=== PATIENT | male | born 1940 | race Hispanic/Latino ===

== ENCOUNTER 2024-10-20 15:07 | Inpatient (IN) | payer MEDICARE ==
[~2024-10-20] VITALS: Ht 175.3 cm; Wt 97.5 kg
[2024-10-20 15:20] VITALS: TEMP 98.3
[2024-10-20 15:49] LABS: BASOPHILS # (AUTO) 0.1 (0.0-0.1); BASOPHILS % 0.7 % (0.0-1.0); EOSINOPHILS # (AUTO) 0.3 (0.0-0.4); EOSINOPHILS % 3.4 % (0.0-6.0); HEMATOCRIT 32.6 % (38.2-49.6); HEMOGLOBIN 10.3 g/dL (14.0-18.0); LYMPHOCYTES # (AUTO) 1.7 (1.0-3.2); LYMPHOCYTES % 21.7 % (18.0-39.1); MEAN CORPUSCULAR HEMOGLOBIN 26.1 pg (28-32); MEAN CORPUSCULAR HGB CONC 31.6 g/dL (31-35); MEAN CORPUSCULAR VOLUME 82.7 fL (81-99); MONOCYTES # (AUTO) 0.5 (0.2-0.8); MONOCYTES % 6.2 % (4.4-11.3); NEUTROPHILS # (AUTO) 5.2 (2.1-6.9); NEUTROPHILS % 67.6 % (38.7-80.0); PLATELET COUNT 293 x10e3/uL (140-360); RED BLOOD COUNT 3.94 x10e6/uL (4.3-5.7); RED CELL DISTRIBUTION WIDTH 15.7 % (11.7-14.4); WHITE BLOOD COUNT 7.69 x10e3/uL (4.8-10.8)
[2024-10-20 16:07] LABS: BILIRUBIN,URINE NEGATIVE (NEGATIVE); CLARITY,URINE SL CLOUDY (CLEAR); COLOR,URINE YELLOW (YELLOW); GLUCOSE, URINE NEGATIVE (NEGATIVE); KETONES,URINE NEGATIVE (NEGATIVE); LEUKOCYTE ESTERASE ,URINE NEGATIVE (NEGATIVE); NITRITE,URINE NEGATIVE (NEGATIVE); PH,URINE 5.5 (5 - 7); PROTEIN,URINE DIPSTICK 1+ (NEGATIVE); URINE UROBILINOGEN 0.2 mg/dL (0.2 - 1)
[2024-10-20 16:17] LABS: AMORPHOUS SEDIMENT,URINE MODERATE; BACTERIA,URINE FEW /HPF; WBC,URINE (MAN) 0-5 /HPF (0-5)
[2024-10-20 16:30] LABS: ALBUMIN 3.3 g/dL (3.5-5.0); ALBUMIN/GLOBULIN RATIO 0.6 (0.8-2.0); ANION GAP 19.7 mmol/L (8-16); BILIRUBIN,TOTAL 0.5 mg/dL (0.2-1.2); CREATININE, SERUM 3.17 mg/dL (0.72-1.25); INR 2.25; MAGNESIUM 2.3 MG/DL (1.3-2.1); POTASSIUM 3.7 mmol/L (3.5-5.1); PROTHROMBIN TIME 26.6 seconds (11.9-14.5); TOTAL PROTEIN 8.8 g/dL (6.5-8.1)
[2024-10-20 16:31] LABS: PARTIAL THROMBOPLASTIN TIME 57.1 seconds (23.8-35.5)
[2024-10-20] MEDS ORDERED: DEXTROSE 50% SYRINGE 50 ML IV ONE (16:35)
[2024-10-20 16:36] LABS: TROPONIN I 0.035 ng/mL (0-0.300)
[2024-10-20] MEDS: DEXTROSE 50% SYRINGE 50 ML IV STA (16:48)
[2024-10-20] MEDS: DEXTROSE 5% 1,000 ML IV ONE (16:59)
[2024-10-20 17:00] VITALS: PULSE 57; RESP 16
[2024-10-20] MEDS ORDERED: FUROSEMIDE40 MG PO (17:03)
[2024-10-20] MEDS ORDERED: CARVEDILOL25 MG PO (17:03)
[2024-10-20] MEDS ORDERED: LANTUS 3ML100 UNITS/ SQ (17:03)
[2024-10-20] MEDS ORDERED: AMLODIPINE BESY10 MG PO (17:03)
[2024-10-20] MEDS ORDERED: WARFARIN SODIUM4 MG PO (17:03)
[2024-10-20] MEDS ORDERED: ATORVASTATIN CA10 MG PO (17:03)
[2024-10-20] MEDS ORDERED: SIMETHICONE 80 MG CHEW PO PRN (17:15)
[2024-10-20] MEDS ORDERED: BENZONATATE 100 MG CAP PO PRN (17:15)
[2024-10-20] MEDS ORDERED: LIDOCAINE 4% PATCH TP PRN (17:15)
[2024-10-20] MEDS ORDERED: ALBUTEROL/IPRATROPIUM 3 ML NEB NEB PRN (17:15)
[2024-10-20] MEDS ORDERED: DIPHENHYDRAMINE HCL 25 MG CAP PO PRN (17:15)
[2024-10-20] MEDS ORDERED: ONDANSETRON HCL INJ 2MG/ML 2ML 2 MG/ML VIAL IV PRN (17:15)
[2024-10-20] MEDS ORDERED: HYDRALAZINE HCL 20 MG/ML VIAL IV PRN (17:15)
[2024-10-20] MEDS ORDERED: DEXTROSE 50% SYRINGE 50 ML IV PRN (17:15)
[2024-10-20] MEDS ORDERED: ACETAMINOPHEN 325 MG TAB PO PRN (17:15)
[2024-10-20] MEDS: DEXTROSE 5%/0.9% SOD CHL 1,000 ML IV SCH (17:48)
[2024-10-20 20:34] VITALS: BP 125/59; PULSE 56; RESP 20; TEMP 97.7; O2SAT 95
[2024-10-20] MEDS ORDERED: MELATONIN 5 MG TABLET PO PRN (21:00)
[2024-10-20] MEDS: TAMSULOSIN HCL 0.4 MG CAP PO SCH (21:41)
[2024-10-20 23:06] VITALS: BP 125/59; PULSE 56; RESP 20; TEMP 97.7; O2SAT 95
[2024-10-20 23:44] VITALS: BP 131/61; PULSE 57; RESP 19; TEMP 97.7; O2SAT 98
[2024-10-21] VITALS (7 sets, daily range): BP systolic 121–141; BP diastolic 57–78; PULSE 56–68; RESP 16–19; TEMP 97.5–97.9; O2SAT 98–100
[2024-10-21 05:58] LABS: BASOPHILS % 0.7 % (0.0-1.0); EOSINOPHILS # (AUTO) 0.3 (0.0-0.4); EOSINOPHILS % 4.6 % (0.0-6.0); HEMATOCRIT 27.4 % (38.2-49.6); HEMOGLOBIN 8.4 g/dL (14.0-18.0); LYMPHOCYTES # (AUTO) 1.4 (1.0-3.2); MEAN CORPUSCULAR HEMOGLOBIN 25.6 pg (28-32); MEAN CORPUSCULAR HGB CONC 30.7 g/dL (31-35); MEAN CORPUSCULAR VOLUME 83.5 fL (81-99); MONOCYTES # (AUTO) 0.4 (0.2-0.8); MONOCYTES % 8.2 % (4.4-11.3); NEUTROPHILS # (AUTO) 3.3 (2.1-6.9); NEUTROPHILS % 60.9 % (38.7-80.0); PLATELET COUNT 249 x10e3/uL (140-360); RED BLOOD COUNT 3.28 x10e6/uL (4.3-5.7); RED CELL DISTRIBUTION WIDTH 15.4 % (11.7-14.4); WHITE BLOOD COUNT 5.39 x10e3/uL (4.8-10.8)
[2024-10-21 06:29] LABS: ANION GAP 15.2 mmol/L (8-16); CALCIUM 7.2 mg/dL (8.4-10.2); CREATININE, SERUM 2.68 mg/dL (0.72-1.25); PHOSPHORUS 3.2 MG/DL (2.3-4.7)
[2024-10-21 06:32] LABS: POTASSIUM 3.2 mmol/L (3.5-5.1)
[2024-10-21 06:38] LABS: TROPONIN I 0.032 ng/mL (0-0.300)
[2024-10-21 06:51] LABS: THYROID STIMULATING HORMONE 1.896 uIU/mL (0.350-4.940)
[2024-10-21] MEDS ORDERED: CARVEDILOL 12.5 MG TAB PO SCH (09:00)
[2024-10-21] MEDS: PANTOPRAZOLE SOD 40 MG TABEC PO SCH (09:14)
[2024-10-21] MEDS: CARVEDILOL 3.125 MG TAB PO SCH (09:14)
[2024-10-21] MEDS: POTASSIUM CHLORIDE 20 MEQ TAB CR PO PRN (09:26)
[2024-10-21] MEDS ORDERED: DEXTROSE 50% SYRINGE 50 ML IV PRN (15:45)
[2024-10-21] MEDS: WARFARIN SOD 2 MG TAB PO SCH (16:49)
[2024-10-21] MEDS: FUROSEMIDE INJ 10 MG/ML 4 ML VIAL IV SCH (16:49)
[2024-10-21] MEDS: POTASSIUM CHLORIDE 20 MEQ TAB CR PO SCH (16:50)
[2024-10-21] MEDS: INSULIN LISPRO 100 UNIT/1 ML 3ML VIAL SQ SCH (16:57)
[2024-10-21 17:24] LABS: TROPONIN I 0.035 ng/mL (0-0.300)
[2024-10-22] VITALS (7 sets, daily range): BP systolic 129–156; BP diastolic 54–74; PULSE 56–64; RESP 18–20; TEMP 97.3–98.9; O2SAT 97–100
[2024-10-22 07:19] LABS: BASOPHILS # (AUTO) 0.1 (0.0-0.1); BASOPHILS % 0.8 % (0.0-1.0); EOSINOPHILS # (AUTO) 0.2 (0.0-0.4); EOSINOPHILS % 3.7 % (0.0-6.0); HEMATOCRIT 29.4 % (38.2-49.6); HEMOGLOBIN 9.3 g/dL (14.0-18.0); LYMPHOCYTES # (AUTO) 1.6 (1.0-3.2); LYMPHOCYTES % 26.6 % (18.0-39.1); MEAN CORPUSCULAR HEMOGLOBIN 26.1 pg (28-32); MEAN CORPUSCULAR HGB CONC 31.6 g/dL (31-35); MEAN CORPUSCULAR VOLUME 82.6 fL (81-99); MONOCYTES # (AUTO) 0.5 (0.2-0.8); NEUTROPHILS # (AUTO) 3.6 (2.1-6.9); NEUTROPHILS % 60.2 % (38.7-80.0); PLATELET COUNT 248 x10e3/uL (140-360); RED BLOOD COUNT 3.56 x10e6/uL (4.3-5.7); RED CELL DISTRIBUTION WIDTH 15.4 % (11.7-14.4); WHITE BLOOD COUNT 6.02 x10e3/uL (4.8-10.8)
[2024-10-22 07:49] LABS: INR 1.93; PROTHROMBIN TIME 23.6 seconds (11.9-14.5)
[2024-10-22 07:54] LABS: ANION GAP 16.4 mmol/L (8-16); CALCIUM 7.7 mg/dL (8.4-10.2); CREATININE, SERUM 2.59 mg/dL (0.72-1.25); POTASSIUM 4.4 mmol/L (3.5-5.1)
[2024-10-22] MEDS: FUROSEMIDE INJ 100 MG in SODIUM CHLORIDE 0.9% 90 ML IV SCH (17:23)
[2024-10-23] VITALS (12 sets, daily range): BP systolic 110–164; BP diastolic 61–72; PULSE 54–101; RESP 18–20; TEMP 97.3–98.6; O2SAT 96–100
[2024-10-23 05:54] LABS: BASOPHILS % 0.6 % (0.0-1.0); EOSINOPHILS # (AUTO) 0.3 (0.0-0.4); HEMATOCRIT 30.9 % (38.2-49.6); HEMOGLOBIN 9.9 g/dL (14.0-18.0); LYMPHOCYTES % 31.7 % (18.0-39.1); MEAN CORPUSCULAR HEMOGLOBIN 26.2 pg (28-32); MEAN CORPUSCULAR VOLUME 81.7 fL (81-99); MONOCYTES # (AUTO) 0.5 (0.2-0.8); MONOCYTES % 7.8 % (4.4-11.3); NEUTROPHILS # (AUTO) 3.4 (2.1-6.9); NEUTROPHILS % 55.4 % (38.7-80.0); PLATELET COUNT 258 x10e3/uL (140-360); RED BLOOD COUNT 3.78 x10e6/uL (4.3-5.7); RED CELL DISTRIBUTION WIDTH 15.9 % (11.7-14.4); WHITE BLOOD COUNT 6.18 x10e3/uL (4.8-10.8)
[2024-10-23 06:06] LABS: ANION GAP 14.9 mmol/L (8-16); CALCIUM 8.3 mg/dL (8.4-10.2); CREATININE, SERUM 2.8 mg/dL (0.72-1.25); POTASSIUM 4.9 mmol/L (3.5-5.1)
[2024-10-23 06:14] LABS: INR 1.7; PROTHROMBIN TIME 21.3 seconds (11.9-14.5)
[2024-10-23] MEDS: WARFARIN SOD 5 MG TAB PO SCH (17:08)
[2024-10-24] VITALS (9 sets, daily range): BP systolic 120–155; BP diastolic 53–73; PULSE 56–80; RESP 16–20; TEMP 97.4–98.5; O2SAT 96–100
[2024-10-24 05:03] LABS: BASOPHILS % 0.4 % (0.0-1.0); EOSINOPHILS # (AUTO) 0.3 (0.0-0.4); EOSINOPHILS % 4.2 % (0.0-6.0); HEMATOCRIT 28.1 % (38.2-49.6); HEMOGLOBIN 9.1 g/dL (14.0-18.0); LYMPHOCYTES # (AUTO) 2.4 (1.0-3.2); LYMPHOCYTES % 30.8 % (18.0-39.1); MEAN CORPUSCULAR HEMOGLOBIN 26.4 pg (28-32); MEAN CORPUSCULAR HGB CONC 32.4 g/dL (31-35); MEAN CORPUSCULAR VOLUME 81.4 fL (81-99); MONOCYTES # (AUTO) 0.7 (0.2-0.8); MONOCYTES % 8.5 % (4.4-11.3); NEUTROPHILS # (AUTO) 4.4 (2.1-6.9); NEUTROPHILS % 55.6 % (38.7-80.0); PLATELET COUNT 222 x10e3/uL (140-360); RED BLOOD COUNT 3.45 x10e6/uL (4.3-5.7); RED CELL DISTRIBUTION WIDTH 15.9 % (11.7-14.4); WHITE BLOOD COUNT 7.85 x10e3/uL (4.8-10.8)
[2024-10-24 05:26] LABS: INR 1.86; PROTHROMBIN TIME 22.9 seconds (11.9-14.5)
[2024-10-24 05:34] LABS: ANION GAP 16.4 mmol/L (8-16); CREATININE, SERUM 2.87 mg/dL (0.72-1.25); POTASSIUM 4.4 mmol/L (3.5-5.1)
[2024-10-24] MEDS: WARFARIN SOD 3 MG TAB PO SCH (16:31)
[2024-10-25] VITALS (8 sets, daily range): BP systolic 125–145; BP diastolic 68–81; PULSE 59–66; RESP 17–20; TEMP 97.5–98.4; O2SAT 98–100
[2024-10-25 06:56] LABS: BASOPHILS % 0.6 % (0.0-1.0); EOSINOPHILS # (AUTO) 0.4 (0.0-0.4); EOSINOPHILS % 5.3 % (0.0-6.0); HEMATOCRIT 31.5 % (38.2-49.6); HEMOGLOBIN 10.1 g/dL (14.0-18.0); LYMPHOCYTES # (AUTO) 2.1 (1.0-3.2); LYMPHOCYTES % 32.5 % (18.0-39.1); MEAN CORPUSCULAR HGB CONC 32.1 g/dL (31-35); MEAN CORPUSCULAR VOLUME 81.2 fL (81-99); MONOCYTES # (AUTO) 0.5 (0.2-0.8); MONOCYTES % 7.3 % (4.4-11.3); NEUTROPHILS # (AUTO) 3.5 (2.1-6.9); NEUTROPHILS % 53.8 % (38.7-80.0); PLATELET COUNT 232 x10e3/uL (140-360); RED BLOOD COUNT 3.88 x10e6/uL (4.3-5.7); RED CELL DISTRIBUTION WIDTH 15.8 % (11.7-14.4); WHITE BLOOD COUNT 6.55 x10e3/uL (4.8-10.8)
[2024-10-25 07:26] LABS: INR 2.15; PROTHROMBIN TIME 25.6 seconds (11.9-14.5)
[2024-10-25 07:40] LABS: ANION GAP 17.9 mmol/L (8-16); CALCIUM 8.3 mg/dL (8.4-10.2); CREATININE, SERUM 3.09 mg/dL (0.72-1.25); POTASSIUM 3.9 mmol/L (3.5-5.1)
[2024-10-25] MEDS: DOCUSATE SODIUM 100 MG CAP PO PRN (12:41)
[2024-10-25] MEDS ORDERED: FUROSEMIDE40 MG PO (14:58)
[2024-10-25] MEDS ORDERED: COREG3.125 MG PO (14:58)
[2024-10-25] MEDS ORDERED: FLOMAX0.4 MG PO (14:58)
[2024-10-25] MEDS ORDERED: LANTUS 3ML100 UNITS/ SQ (15:20)
[2024-10-25] MEDS ORDERED: FUROSEMIDE INJ 10 MG/ML 4 ML VIAL IV SCH (21:00)
== END 2024-10-25 16:45 | disposition home or self-care (01) | DRG 683 ==
LOC: ER 15:33 → ERHOLD 18:15 → MED/SURG2 20:08
PROVIDERS: ADMIT Internal Medicine; ATTEND Internal Medicine
PROC: 0T9B70Z Drainage of Bladder with Drainage Device, Via Natural or Artificial Opening (ICD-10-PCS; principal; 2024-10-20)
DX: N17.9 Acute kidney failure, unspecified (principal); D68.9 Coagulation defect, unspecified; I48.92 Unspecified atrial flutter; I13.0 Hypertensive heart and chronic kidney disease with heart failure and stage 1 through stage 4 chronic kidney disease, or unspecified chronic kidney disease; I50.32 Chronic diastolic (congestive) heart failure; N13.8 Other obstructive and reflux uropathy; N40.1 Benign prostatic hyperplasia with lower urinary tract symptoms; R33.8 Other retention of urine; E11.22 Type 2 diabetes mellitus with diabetic chronic kidney disease; N18.4 Chronic kidney disease, stage 4 (severe); E78.5 Hyperlipidemia, unspecified; E11.649 Type 2 diabetes mellitus with hypoglycemia without coma; E87.6 Hypokalemia; I08.1 Rheumatic disorders of both mitral and tricuspid valves; D64.9 Anemia, unspecified; N28.1 Cyst of kidney, acquired; T38.3X5A Adverse effect of insulin and oral hypoglycemic [antidiabetic] drugs, initial encounter; E66.9 Obesity, unspecified; Z68.31 Body mass index [BMI] 31.0-31.9, adult; Z79.01 Long term (current) use of anticoagulants; Z79.4 Long term (current) use of insulin; Z90.49 Acquired absence of other specified parts of digestive tract; Z90.2 Acquired absence of lung [part of]; Z88.8 Allergy status to other drugs, medicaments and biological substances; Z82.49 Family history of ischemic heart disease and other diseases of the circulatory system
CPT/HCPCS: 36415; 51700; 70450; 71045; 74176; 80048; 80053; 81001; 82550; 82948; 83036; 83735; 83880; 84100; 84443; 84484; 85025; 85610; 85730; 87086; 93005; 93306; 94799; 99252; 99284; J1938; J1940; J2470; J7042; J7050; J7070; J7799